=== PATIENT | male | born 1975 | race Caucasian/White ===

== ENCOUNTER 2019-04-23 20:07 | Emergency (ER) | payer OTHER, SELFPAY ==
[2019-04-23 21:08] LABS: #Basophils 0.1 thou/uL (0.0-0.2); #Eosinphils 0.2 thou/uL (0.0-0.7); #Lymphocytes 2.3 thou/uL (1.20-3.40); #Monocytes 0.5 thou/uL (0.11-0.59); #Neutrophils 2.8 thou/uL (1.40-6.50); %Basophils 1.1 % (0.0-1.0); %Eosinophils 3.5 % (0.0-10.0); %Lymphocytes 39.1 % (21.0-51.0); %Monocytes 8.3 % (0.0-10.0); %Neutrophils 47.9 % (42.0-75.0); Hemoglobin 14.1 g/dL (14.0-18.0); Mean Corpuscular Volume 85.8 fL (78.0-98.0); Mean Platelet Volume 7.1 fL (7.4-10.4); Platelet Count 214 thou/uL (130-400); RBC Distribution Width 11.5 % (11.5-14.5); Red Blood Cell (RBC) Count 4.71 mill/uL (4.70-6.10); White Blood Cell (WBC) Count 5.7 thou/uL (4.8-10.8)
--- NOTE | 2019-04-23 21:23 | CT ---
EXAM: Abdomen and pelvic CT scan without contrast: HISTORY: Right flank pain radiating to back COMPARISON: None FINDINGS: The visualized lung bases are clear. Liver: Fatty changes in the liver. Gallbladder:Gallstone without evidence for acute cholecystitis or ductal dilatation. Pancreas:Unremarkable Spleen:Unremarkable. Adrenal glands:Unremarkable. Kidneys:No renal calculus or acute obstruction. No solid or cystic renal mass. No evidence for bowel obstruction. No CT evidence for acute appendicitis. The urinary bladder is unremarkable. Reproductive system:Unremarkable No abscess, adenopathy, or abnormal fluid collection within the abdomen or pelvis. IMPRESSION: Fatty changes in the liver. Cholelithiasis without evidence for acute cholecystitis. No obstructing calculus.
[2019-04-23 21:32] LABS: ALT (SGPT) 49 U/L (8-55); AST (SGOT) 23 U/L (5-34); Alkaline Phosphatase 106 U/L (40-110); Anion Gap 10 mmol/L (10-20); BUN (Urea Nitrogen) 21 mg/dL (8.9-20.6); Bilirubin, Total 0.3 mg/dL (0.2-1.2); Calc. Creatinine Clearance 0 mL/min (70-130); Carbon Dioxide 26 mmol/L (22-29); Chloride 107 mmol/L (98-107); Estimated GFR-MDRD Greater than 90; Globulin 2.9 g/dL (2.4-3.5); Glucose 125 mg/dL (70-105); Potassium 3.9 mmol/L (3.5-5.1); Protein, Total 6.9 g/dL (6.0-8.3); Sodium 139 mmol/L (136-145)
[2019-04-23 22:53] LABS: Bilirubin Negative (Negative); Blood, Urine Negative (Negative); Clarity Clear (Clear); Glucose, Urine (Dipstick) 70 mg/dL (Negative); Leukocyte Negative Leu/uL (Negative); Nitrite Negative (Negative); Protein, Urine (Dipstick) Negative (Neg-Trace); Urobilinogen Normal mg/dL (Less than 2)
[2019-04-23] MEDS ORDERED: Ketorolac Tromethamine 30 MG/ML VIAL ONE (23:09)
[2019-04-23] MEDS ORDERED: Morphine 4 MG/ML VIAL ONE (23:09)
== END 2019-04-23 23:55 | disposition home or self-care (01) ==
LOC: ERS 20:07
DX: K80.20 Calculus of gallbladder without cholecystitis without obstruction (principal)
CPT/HCPCS: 74176; 80053; 81003; 85025; 87086; 96361; 96374; 96375; J1885; J2270

== ENCOUNTER 2019-07-13 05:14 | Outpatient (CLI) | payer BC ==
[2019-07-13 08:55] LABS: #Basophils 0.1 thou/uL (0.0-0.2); #Eosinphils 0.2 thou/uL (0.0-0.7); #Lymphocytes 1.7 thou/uL (1.20-3.40); #Monocytes 0.4 thou/uL (0.11-0.59); #Neutrophils 2.4 thou/uL (1.40-6.50); %Basophils 1.9 % (0.0-1.0); %Eosinophils 3.7 % (0.0-10.0); %Lymphocytes 36.1 % (21.0-51.0); %Monocytes 7.4 % (0.0-10.0); %Neutrophils 50.9 % (42.0-75.0); Hemoglobin 15.4 g/dL (14.0-18.0); Mean Corpuscular HGB CONC 34.4 g/dL (32.0-36.0); Mean Corpuscular Hemoglobin 29.9 pg (27.0-31.0); Mean Corpuscular Volume 86.8 fL (78.0-98.0); Mean Platelet Volume 7.6 fL (7.4-10.4); Platelet Count 187 thou/uL (130-400); RBC Distribution Width 11.7 % (11.5-14.5); Red Blood Cell (RBC) Count 5.14 mill/uL (4.70-6.10); White Blood Cell (WBC) Count 4.8 thou/uL (4.8-10.8)
[2019-07-13 09:17] LABS: ALT (SGPT) 46 U/L (8-55); AST (SGOT) 20 U/L (5-34); Albumin 4.1 g/dL (3.5-5.0); Alkaline Phosphatase 92 U/L (40-110); Anion Gap 13 mmol/L (10-20); BUN (Urea Nitrogen) 22 mg/dL (8.9-20.6); Bilirubin, Direct 0.1 mg/dL (0.1-0.3); Bilirubin, Total 0.3 mg/dL (0.2-1.2); Calc. Creatinine Clearance 0 mL/min (70-130); Carbon Dioxide 24 mmol/L (22-29); Chloride 108 mmol/L (98-107); Estimated GFR-MDRD 84; Glucose 144 mg/dL (70-105); Potassium 4.2 mmol/L (3.5-5.1); Protein, Total 6.7 g/dL (6.0-8.3); Sodium 141 mmol/L (136-145)
== END 2019-07-13 05:15 | disposition home or self-care (01) ==
LOC: LABBT 05:14
PROVIDERS: ATTEND Surgery
DX: Z01.812 Encounter for preprocedural laboratory examination (principal); K80.20 Calculus of gallbladder without cholecystitis without obstruction
CPT/HCPCS: 80048; 80076; 85025

== ENCOUNTER 2019-07-16 09:51 | Day surgery (SDC) | payer BC ==
[2019-07-13 08:30] VITALS: BMI 28.1
[2019-07-16] MEDS ORDERED: ceFOXitin 2 GM/50 ML Duplex BAG ONE (10:43)
[2019-07-16] MEDS ORDERED: Midazolam HCl 2 mg/2 ml Vial ONE ×2 (10:48→12:05)
[2019-07-16] MEDS ORDERED: EPINEPHrine 1 MG/ML AMP ONE (10:58)
[2019-07-16] MEDS ORDERED: Iothalamate Meglumine 60% 50 ML VIAL FS ONE (10:58)
[2019-07-16] MEDS ORDERED: Bupivacaine 0.25% HCL 30 ML VIAL ONE (10:58)
[2019-07-16] MEDS ORDERED: Fentanyl 100 MCG/2 ML VIAL ONE (11:25)
[2019-07-16] MEDS ORDERED: Ondansetron PF 4 MG/2 ML Vial ONE (14:43)
[2019-07-16] MEDS ORDERED: Lidocaine 1% PF 5 ML VIAL ONE (14:43)
[2019-07-16] MEDS ORDERED: PROPOFOL 200 MG/20 ML VIAL ONE (14:43)
[2019-07-16] MEDS ORDERED: Glycopyrrolate 0.2 MG/ML 5 ML SYRINGE ONE (14:43)
[2019-07-16] MEDS ORDERED: Rocuronium Bromide 10 MG/ML (10ML VIAL) ONE (14:43)
[2019-07-16] MEDS ORDERED: Ketorolac Tromethamine 30 MG/ML VIAL ONE (14:43)
[2019-07-16] MEDS ORDERED: Dexamethasone 20 MG/5 ML VIAL ONE (14:43)
[2019-07-16] MEDS ORDERED: Promethazine HCl 25 MG/ML VIAL ONE (16:21)
--- NOTE | 2019-07-17 09:54 | OP ---
DATE OF PROCEDURE: 07/16/2019 PREOPERATIVE DIAGNOSIS: Acute cholecystitis. POSTOPERATIVE DIAGNOSIS: Acute cholecystitis. PROCEDURES PERFORMED: 1. Laparoscopic cholecystectomy, attempted intraoperative cholangiogram. 2. Laparoscopic liver biopsy. ANESTHESIA: General. ESTIMATED BLOOD LOSS: Minimal. COMPLICATIONS: None. SPECIMEN: Gallbladder, liver biopsy. DESCRIPTION OF PROCEDURE: The patient was taken to the operating room and laid supine on the operating room table. After general anesthetic was obtained, the abdomen was prepped and draped in a sterile fashion. A curved incision was made below the umbilicus. Cautery was dissected down to and score the fascia. Abdominal cavity was entered bluntly using a Kathleen clamp. Holding stitch of PDS was placed on each side of the fascia. Bam trocar was placed. High-flow pneumoperitoneum was obtained. Three 5 mm upper abdominal ports were placed. The patient had a large liver, which made the gallbladder removal difficult. At the dissection area, the cystic duct and the cystic artery allowed delineation of these structures. The critical view of triangle was seen showing only the cystic duct and cystic artery branching medial to lateral and no other branching structures. A cholangiogram was performed, but they can never get the catheter to pass, so 2 clips were placed proximally and one distally. Cystic duct was cut using laparoscopic scissors. Cystic artery was taken in the same way. Cautery was used to dissect the gallbladder out of the gallbladder fossa. Gallbladder was placed in an Endo Catch bag and brought out through the Bam. Multiple liver biopsies were obtained with the core liver biopsy gun. There was no significant bleeding to the liver, but the edge of the liver, where the biopsy was performed was cauterized. There was no bleeding in the liver. There was no right upper quadrant bile. All port sites were infiltrated using local anesthetic. All ports were removed under camera visualization. Pneumoperitoneum was let down. The patient was sent to Recovery in stable condition after 4-0 Monocryl and Dermabond used to close all skin incisions. Job ID: [id number]
== END 2019-07-16 17:40 | disposition home or self-care (01) ==
LOC: SDC 09:51
PROVIDERS: ATTEND Surgery
PROC: 0FB04ZX Excision of Liver, Percutaneous Endoscopic Approach, Diagnostic (ICD-10-PCS; principal; 2019-07-16)
PROC: 0FT44ZZ Resection of Gallbladder, Percutaneous Endoscopic Approach (ICD-10-PCS; principal; 2019-07-16)
DX: K80.12 Calculus of gallbladder with acute and chronic cholecystitis without obstruction (principal); K76.0 Fatty (change of) liver, not elsewhere classified; Z79.84 Long term (current) use of oral hypoglycemic drugs
CPT/HCPCS: 88304; 88307; 88313; J0171; J0694; J1100; J1885; J2001; J2250; J2405; J2550; J2704; J3010; S0020